=== PATIENT | male | born 1965 | race Caucasian/White ===

== ENCOUNTER 2021-06-06 04:08 | Day surgery (SDC) | payer OTHER ==
[2021-06-01 10:54] VITALS: BMI 31.7
[2021-06-06] MEDS ORDERED: LIDOCAINE HCL 2% JELLY (5 ML/TUBE) ONE (07:22)
[2021-06-06] MEDS ORDERED: ONDANSETRON 4 MG/2 ML VIAL ONE (07:22)
[2021-06-06] MEDS ORDERED: ceFAZolin SODIUM 1 GM VIAL ONE (07:22)
[2021-06-06] MEDS ORDERED: KETOROLAC TROMETHAMINE 30 MG/1 ML VIAL ONE (07:22)
[2021-06-06] MEDS ORDERED: LIDOCAINE HCL/PF 2% SDV 5ML VIAL ONE (07:22)
[2021-06-06] MEDS ORDERED: PROPOFOL 20 ML ONE ×2 (07:23)
[2021-06-06] MEDS ORDERED: SUCCINYLCHOLINE CHLORIDE 200 MG/10 ML SYRINGE ONE (07:41)
[2021-06-06] MEDS ORDERED: GENTAMICIN SO4 80 MG/2 ML VIAL ONE (09:03)
[2021-06-06] MEDS ORDERED: MIDAZOLAM HCL 2 MG/2 ML SINGLE DOSE VIAL ONE (09:26)
[2021-06-06] MEDS ORDERED: KETAMINE HCL 200 MG/20 ML VIAL ONE (09:33)
[2021-06-06] MEDS ORDERED: ceFAZolin SODIUM 1 GM VIAL IVPB ONE (09:45)
[2021-06-06] MEDS ORDERED: ACETAMINOPHEN INJECTION 100 ML IVPB ONE (09:51)
[2021-06-06] MEDS ORDERED: BUPIVACAINE HCL/PF 0.25% (2.5MG/ML) 10 ML VIAL ONE (10:09)
[2021-06-06] MEDS ORDERED: BUPIVACAINE HCL/PF 0.25% (2.5MG/ML) 10 ML VIAL IJ ONE (10:19)
[2021-06-06] MEDS ORDERED: oxyCODONE HCL 5 MG TABLET PO PRN (10:46)
[2021-06-06] MEDS ORDERED: ONDANSETRON 4 MG/2 ML VIAL IVPUSH PRN (10:46)
[2021-06-06] MEDS ORDERED: LACTATED RINGERS SOLUTION 1,000 ML IV SCH (11:00)
[2021-06-06 13:34] VITALS: BP 130/90; PULSE 78; TEMP 98.8
== END 2021-06-06 13:10 | disposition home or self-care (01) ==
LOC: JASU-SURG 04:08
PROVIDERS: ATTEND Urology
PROC: 0VU Male Reproductive System, Supplement (ICD-10-PCS; principal; 2021-06-06 09:00)
DX: Z90.79 Acquired absence of other genital organ(s) (principal)
CPT/HCPCS: 54660; L8699; 94760